=== PATIENT | female | born 2000 | race Caucasian/White ===

== ENCOUNTER → 2024-07-21 | Outpatient (CLI) | payer MEDICAID | END | disposition home or self-care (01) | LOC: LABWHC1 08:59 | PROVIDERS: ATTEND Obstetrics & Gynecology | DX: N64.52 Nipple discharge (principal) | CPT/HCPCS: 36415; 84146 ==

== ENCOUNTER → 2024-07-31 | Outpatient (CLI) | payer MEDICAID | END | disposition home or self-care (01) | LOC: LABWHC1 07:12 | PROVIDERS: ATTEND Obstetrics & Gynecology | DX: O92.6 Galactorrhea (principal) | CPT/HCPCS: 36415; 84146 ==

== ENCOUNTER → 2024-09-19 | Outpatient (CLI) | payer MEDICAID ==
--- NOTE | 2024-09-19 20:19 | MR ---
INDICATION: Patient age:Female; 24 years old; Reason for study: E22.1 HYPERPROLACTINEMIA; [facility]. COMPARISON: None. TECHNIQUE: Multi planar, multi sequence imaging was performed through the brain. The patient was then given 10 cc of Gadavist intravenously and multi planar, T1 fat-saturation images were obtained. FINDINGS: The sheridan-white junctions, ventricular system, basal cisterns appear unremarkable. Diffusion-weighted imaging shows no evidence of restricted diffusion to suggest acute/subacute infarct. Intracranial art erial flow voids are maintained. Midline structures show no abnormality. No FLAIR signal abnormality is identified. The susceptibility weighted images do not reveal any evidence for micro-hemorrhage. Th ere is a hypointense lesion on postcontrast imaging within the left aspect of the pituitary gland nam suring approximately 6 x 6 x 6 mm. No extension into the surrounding structures or mass effect. This demonstrates subtle internal enhancement but hypointense to the surrounding pituitary parenchyma. No other abnormal contrast enhancement identified. The bone marrow signal is within normal limits. The paranasal sinuses and globes are unremarkable. IMPRESSION: 1. No evidence of acute/subacute infarct. 2. Hypointense 6 mm lesion within the pituitary gland likely representing a pituitary microadenoma in the setting of hyperprolactinemia. Correlate clinically. No invasion of the surrounding structures o r mass effect. No other cerebral abnormal enhancement. [facility], , 09/19/2024 8:16 PM
== END | disposition home or self-care (01) ==
LOC: RADMRIMAIN 17:33
PROVIDERS: ATTEND Obstetrics & Gynecology
DX: E22.1 Hyperprolactinemia (principal); E23.7 Disorder of pituitary gland, unspecified
CPT/HCPCS: 70553; A9585

== ENCOUNTER → 2024-09-22 | Outpatient (CLI) | payer MEDICAID ==
--- NOTE | 2024-09-22 12:33 | MR ---
CLINICAL INDICATION: Hyperprolactinemia. COMPARISON: MRI brain 09/19/2024. TECHNIQUE: Multi planar, multi sequence imaging was performed through the pituitary gland/sella turc ica. Pre-and post gadolinium sequences were obtained as well after administration of 6 cc of Gadobut rol. FINDINGS: The visualized sheridan-white junctions, ventricular system, and basal cisterns appear unremarkable. The pituitary stalk is minimally deviated to the right. There is a round lesion within the left aspect o f the pituitary which is T1 isointense. This demonstrates homogeneous hypo-enhancement on T1 postcont rast imaging measuring 8.7 x 8.4 x 6.3 mm (series 701, image 11 and series 901, image 6. There is abu tment of the left carotid artery (series 701, image 11). IMPRESSION: Pituitary 8.7 x 8.4 x 6.3 mm with characteristics most consistent with a pituitary microadenoma in th e setting of hyperprolactinemia. The pituitary stalk is minimally deviated to the right. [facility], , 09/22/2024 12:31 PM
== END | disposition home or self-care (01) ==
LOC: RADMRIMAIN 10:35
PROVIDERS: ATTEND Obstetrics & Gynecology
DX: E22.1 Hyperprolactinemia (principal); N64.52 Nipple discharge; R51.9 Headache, unspecified
CPT/HCPCS: 70553; A9585

== ENCOUNTER → 2024-12-31 | Outpatient (CLI) | payer MEDICAID ==
[2024-12-31 15:40] LABS: T4, Free (Free Thyroxine) 0.96 ng/dL (0.80-1.80)
[2024-12-31 15:47] LABS: ALT 18 U/L (8-44); AST 17 U/L (13-35); Albumin 4.3 g/dL (3.8-4.9); Albumin/Globulin Ratio 1.48 Ratio (1.60-3.17); Alkaline Phosphatase 65 U/L (41-126); BUN/Creat Ratio 18.86 Ratio (12.00-20.00); Blood Urea Nitrogen 13.2 mg/dL (9.0-27.0); Calcium 9.4 mg/dL (8.7-10.3); Carbon Dioxide 22.5 mmol/L (21.6-31.8); Chloride 103 mmol/L (96-109); Estradiol <20.0 pg/mL; Globulin 2.9 g/dL (1.6-3.3); Glucose 89 mg/dL (70-110); Potassium 4.8 mmol/L (3.5-5.5); Sodium 137 mmol/L (135-145); Total Bilirubin <0.2 mg/dL (0.3-1.2); Total Protein 7.2 g/dL (6.2-8.2)
[2024-12-31 15:55] LABS: Follicle Stimulating Hormone <0.3 mIU/mL; Luteinizing Hormone <1.0 mIU/mL
== END | disposition home or self-care (01) ==
LOC: LABWHC1 10:08
PROVIDERS: ATTEND Internal Medicine
DX: E22.1 Hyperprolactinemia (principal)
CPT/HCPCS: 36415; 80053; 82024; 82533; 82670; 83001; 83002; 84146; 84305; 84439; 84443